=== PATIENT | female | born 1940 | race Hispanic/Latino ===

== ENCOUNTER 2018-06-30 19:13 | Emergency (ER) | payer OTHER ==
[~2018-06-30] VITALS: Ht 165.1 cm; Wt 47.7 kg
[2018-06-30] MEDS ORDERED: MORPHINE 4 MG/ML 1ML VIAL/SYRINGE (J2270) IV ONE ×2 (19:30→20:15)
[2018-06-30] MEDS ORDERED: ENAL20TA PO (19:46)
[2018-06-30] MEDS ORDERED: LEG1TAB PO (19:47)
[2018-06-30] MEDS ORDERED: PRESION (19:47)
[2018-06-30] MEDS ORDERED: ASPI1TAB PO (19:48)
[2018-06-30] MEDS ORDERED: RANI15TA PO (19:48)
[2018-06-30 20:16] LABS: BASO % 0.3 % (0.0-1.0); EOS # 0.1 10^3/uL (0.0-0.50); EOS % 1.6 % (0.0-3.0); HEMATOCRIT 29.1 % (36.0-47.0); HEMOGLOBIN 9.6 g/dl (12.0-15.5); LYMPH # 2.4 10^3/uL (1.5-4.5); LYMPH % 33.1 % (24.0-44.0); MEAN CORPUSCULAR HEMOGLOBIN 31.2 pg (27.0-33.0); MEAN CORPUSCULAR VOLUME 94.5 fl (80.0-96.0); MONO # 0.8 10^3/uL (0.0-0.8); MONO % 11.1 % (0.0-5.0); NEUTROPHILS # 3.9 10^3/uL (1.8-7.7); NEUTROPHILS % 53.6 % (36.0-66.0); PLATELET COUNT, AUTOMATED 309 10^3/uL (150-450); RED BLOOD COUNT 3.08 10^6/uL (4.00-5.40); WHITE BLOOD COUNT 7.3 10^3/uL (4.0-10.0)
[2018-06-30 20:49] LABS: CALCIUM LEVEL 8.7 MG/DL (8.8-10.2); CREATININE FOR GFR 1.47 MG/DL (0.55-1.30); GLOMERULAR FILTRATION RATE 36.5 (>39); POTASSIUM SERUM 4.5 MEQ/L (3.5-5.1)
--- NOTE | 2018-06-30 20:52 | REP ---
HISTORY: Chronic left hip pain. There is marked asymmetric left hip joint space narrowing with buttressing and subchondral sclerosis. AP pelvis was obtained with AP and frog lateral views of the left hip. The AP pelvis shows old healed left superior and inferior pubic rami fractures. There is no evidence of an acute fracture. IMPRESSION: Severe left hip degenerative changes and other findings as described above. Electronically Signed by Campos Tanner DO 07/01/2018 01:58 P
[2018-06-30] MEDS ORDERED: PERCOCET 5MG/325MG TAB PO ONE (21:00)
[2018-06-30] MEDS ORDERED: ONDANSETRON 4MG/2ML VIAL (J2405) IV ONE (22:45)
[2018-06-30] MEDS ORDERED: PERCOCET PO (22:53)
[2018-06-30] MEDS ORDERED: PRED20TA PO (22:53)
[2018-06-30 23:00] VITALS: BP 159/72
[2018-06-30] MEDS ORDERED: OXYCODONE/APAP 5MG/325MG(BULK FOR ED) 1 TABLET PO ONE (23:00)
== END 2018-06-30 23:20 | disposition home or self-care (01) ==
LOC: M ED 19:13 → EDBD 19:13 → M ED 23:20
DX: M25.552 Pain in left hip (principal); I10 Essential (primary) hypertension; K21.9 Gastro-esophageal reflux disease without esophagitis; G89.29 Other chronic pain; Z79.899 Other long term (current) drug therapy; Z79.82 Long term (current) use of aspirin
CPT/HCPCS: 73502; 80048; 85025; 96374; 96375; 96376; 99284; J2270; J2405